=== PATIENT | female | born 1980 | race Caucasian/White ===

== ENCOUNTER 2019-07-28 07:51 | Day surgery (SDC) | payer BC ==
[2019-07-25 13:22] LABS: ALBUMIN 4.4 g/dL (3.4-5.0); ANION GAP 8 mmol/L (5-15); CHLORIDE 105 mmol/L (98-107)
[2019-07-25 13:25] LABS: ALANINE AMINOTRANSFERASE 17 U/L (12-78); ALKALINE PHOSPHATASE 45 U/L (45-117); BILIRUBIN,TOTAL 0.4 mg/dL (0.2-1.0); CREATININE 1.08 mg/dL (0.55-1.02); TOTAL PROTEIN 7.9 g/dL (6.4-8.2)
[~2019-07-28] VITALS: Ht 162.6 cm; Wt 70.0 kg
[~2019-07-28 07:51] MED LIST: ALBU90AE INH; BUPIVACAINE/PF-EPI 0.25% 1:200K ONE; METHYLENE BLUE 10 MG/ML 10ML ONE; SPIR25TA5 PO; TORS10TA4 PO
[2019-07-28] MEDS ORDERED: LACTATED RINGERS 1,000 ML IV SCH ×2 (08:15→12:13)
[2019-07-28 08:21] VITALS: BP 125/87
[2019-07-28] MEDS ORDERED: INDIGO CARMINE 0.8%, 5ML ONE (08:26)
[2019-07-28] MEDS ORDERED: CHLORHEXIDINE 15 ML UDC MM ONE (08:30)
[2019-07-28] MEDS ORDERED: GABAPENTIN 300 MG CAPSULE PO ONE (08:30)
[2019-07-28] MEDS ORDERED: SCOPOLAMINE 1MG PATCH TD SCH (08:30)
[2019-07-28] MEDS ORDERED: ACETAMINOPHEN 500 MG TABLET PO ONE (08:30)
[2019-07-28] MEDS ORDERED: LIDOCAINE-MPF 1%, 2ML INFIL ONE (08:30)
[2019-07-28] MEDS ORDERED: MIDAZOLAM 1 MG/ML, 2ML ONE (08:34)
[2019-07-28] MEDS ORDERED: FENTANYL PF 250 MCG/5ML ONE (08:34)
[2019-07-28] MEDS ORDERED: KETOROLAC 30 MG/1 ML ONE (08:36)
[2019-07-28] MEDS ORDERED: ONDANSETRON 2MG/ML, 2ML ONE (08:37)
[2019-07-28] MEDS ORDERED: PROPOFOL 10 MG/ML, 20ML ONE (08:37)
[2019-07-28] MEDS ORDERED: GLYCOPYRROLATE 0.2MG/1ML, 5ML ONE (08:37)
[2019-07-28] MEDS ORDERED: NEOSTIGMINE 1 MG/ML, 10ML ONE (08:37)
[2019-07-28] MEDS ORDERED: DEXAMETHASONE 4 MG/ML, 1ML ONE (08:37)
[2019-07-28] MEDS ORDERED: ROCURONIUM 10MG/ML,5ML ONE (08:37)
[2019-07-28] MEDS ORDERED: LIDOCAINE-MPF 1%, 2ML ONE (08:45)
[2019-07-28] MEDS ORDERED: GABAPENTIN 300 MG CAPSULE ONE (08:45)
[2019-07-28] MEDS ORDERED: CHLORHEXIDINE 15 ML UDC ONE (08:45)
[2019-07-28] MEDS ORDERED: SCOPOLAMINE 1MG PATCH TD ONE (08:45)
[2019-07-28] MEDS ORDERED: ACETAMINOPHEN 500 MG TABLET ONE (08:45)
[2019-07-28 08:51] LABS: HCG UR SG 1.012 (1.003-1.030)
[2019-07-28] MEDS ORDERED: CLINDAMYCIN 150 MG/ML, 6ML ONE (09:58)
[2019-07-28] MEDS ORDERED: MEPERIDINE/PF 25MG/0.5ML IVPush PRN (10:00)
[2019-07-28] MEDS ORDERED: LABETALOL 5MG/ML, 20ML IV PRN (10:00)
[2019-07-28] MEDS ORDERED: FENTANYL PF 100 MCG/2ML IV PRN (10:00)
[2019-07-28] MEDS ORDERED: OXYcodone 5 MG/5 ML ORAL.SOL UDC PO PRN (10:00)
[2019-07-28] MEDS ORDERED: morphine SULFATE 10 MG/ML, 1ML IVPush PRN (10:00)
[2019-07-28] MEDS ORDERED: hydrALAzine 20 MG/ML, 1ML IV PRN (10:00)
[2019-07-28] MEDS ORDERED: PROMETHAZINE 25 MG/ML, 1ML IVPush PRN (10:00)
[2019-07-28] MEDS ORDERED: PROPOFOL 50 ML ONE (10:00)
[2019-07-28] MEDS ORDERED: HALOPERIDOL 5 MG/ML IV PRN (10:00)
[2019-07-28] MEDS ORDERED: FENTANYL PF 100 MCG/2ML ONE (11:13)
[2019-07-28] MEDS ORDERED: PROMETHAZINE 25 MG SUPP PR ONE (12:30)
[2019-07-28] MEDS ORDERED: HYDROcodone/APAP 5/325 TABLET PO PRN (12:30)
[2019-07-28] MEDS ORDERED: ONDANSETRON 2MG/ML, 2ML IVPush PRN (12:30)
[2019-07-28] MEDS ORDERED: HYDROmorphone 1 MG/ML, 1ML INJ ONE (12:31)
[2019-07-28] MEDS: HYDROmorphone 1 MG/ML, 1ML INJ IVPush PRN ×3 (12:37→13:03)
[2019-07-28] MEDS ORDERED: MEPERIDINE/PF 50 MG/ML ONE (13:10)
== END 2019-07-28 18:15 | disposition home or self-care (01) ==
LOC: OUT 07:51
PROVIDERS: ATTEND Obstetrics & Gynecology Female Pelvic Medicine and Reconstructive Surgery
DX: N94.6 Dysmenorrhea, unspecified (principal); N80.3 Endometriosis of pelvic peritoneum; N83.01 Follicular cyst of right ovary; N73.6 Female pelvic peritoneal adhesions (postinfective); N94.12 Deep dyspareunia; F32.9 Major depressive disorder, single episode, unspecified; F41.9 Anxiety disorder, unspecified; J45.909 Unspecified asthma, uncomplicated; Z79.899 Other long term (current) drug therapy; Z87.442 Personal history of urinary calculi; Z88.2 Allergy status to sulfonamides; Z88.6 Allergy status to analgesic agent; Z88.8 Allergy status to other drugs, medicaments and biological substances; Z91.012 Allergy to eggs; Z91.040 Latex allergy status; Z91.011 Allergy to milk products; Z98.890 Other specified postprocedural states; Z84.2 Family history of other diseases of the genitourinary system
CPT/HCPCS: 36415; 58552; 80053; 81025; 88305; 88307; J1100; J1170; J2175; J2250; J2405; J2704; J2710; J3010; J7120; S2900; U0001; J1885; Q9968